=== PATIENT | male | born 2005 | race Hispanic/Latino ===

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

== ENCOUNTER 2023-06-08 17:17 | Emergency (ER) | payer OTHER, SELFPAY ==
[2023-06-08] MEDS ORDERED: MUPIROCIN 2% OINT 22GM TUBE TOP ONE (18:03)
[2023-06-08] MEDS ORDERED: SMZ./TMP. 800/160 MG TABLET ONE (18:03)
[2023-06-08] MEDS ORDERED: DOXYCYCLINE 100 MG CAP PO ONE (18:03)
--- NOTE | 2023-06-08 18:06 | EDPHYS ---
Physician Documentation [facility] Name: Kain Hunt Jr Age: 17 yrs Sex: Male : 2005 Arrival Date: 06/08/2023 Time: 17:17 Bed 12 Private MD: ED Physician José Miguel Torres HPI: 06/08 18:00 This 17 yrs old Male presents to ER via Ambulatory with complaints of Insect magy Bite. 18:00 The patient presents with an abscess of the medial aspect of right thigh and left leg. magy Description: confluent, erythematous. Onset: The symptoms/episode began/occurred 2 day(s) ago. Possible cause(s): insect sting. Associated signs and symptoms: Pertinent positives: swelling. Modifying factors: the symptoms are alleviated by nothing, the symptoms are aggravated by pressure, squeezing the lesion and expressing the contents. Severity of symptoms: At their worst the symptoms were mild, moderate, in the emergency department the symptoms are unchanged. The patient has not experienced similar symptoms in the past. Historical: - Allergies: 17:24 No Known Allergies; hb - Home Meds: 17:24 None [Active]; hb - PMHx: 17:24 None; hb - PSHx: 17:24 None; hb - Immunization history:: Adult Immunizations up to date. - Social history:: Smoking status: Patient denies any tobacco usage or history of. - Family history:: not pertinent. ROS: 18:00 Constitutional: Negative for fever, chills, and weight loss, Eyes: Negative for injury, magy pain, redness, and discharge, ENT: Negative for injury, pain, and discharge, Neck: Negative for injury, pain, and swelling, Cardiovascular: Negative for chest pain, palpitations, and edema, Respiratory: Negative for shortness of breath, cough, wheezing, and pleuritic chest pain, Abdomen/GI: Negative for abdominal pain, nausea, vomiting, diarrhea, and constipation, Back: Negative for injury and pain, : Negative for injury, bleeding, discharge, and swelling, Neuro: Negative for headache, weakness, numbness, tingling, and seizure, Psych: Negative for depression, anxiety, suicide ideation, homicidal ideation, and hallucinations, Allergy/Immunology: Negative for hives, rash, and allergies, Endocrine: Negative for neck swelling, polydipsia, polyuria, polyphagia, and marked weight changes, Hematologic/Lymphatic: Negative for swollen nodes, abnormal bleeding, and unusual bruising. 18:00 MS/extremity: Positive for pain, swelling, tenderness, of the medial aspect of right thigh. 18:00 Skin: Positive for swelling, of the medial aspect of right thigh. Exam: 18:00 Constitutional: This is a well developed, well nourished patient who is awake, alert, magy and in no acute distress. Head/Face: Normocephalic, atraumatic. Eyes: Pupils equal round and reactive to light, extra-ocular motions intact. Lids and lashes normal. Conjunctiva and sclera are non-icteric and not injected. Cornea within normal limits. Periorbital areas with no swelling, redness, or edema. ENT: Nares patent. No nasal discharge, no septal abnormalities noted. Tympanic membranes are normal and external auditory canals are clear. Oropharynx with no redness, swelling, or masses, exudates, or evidence of obstruction, uvula midline. Mucous membranes moist. Neck: Trachea midline, no thyromegaly or masses palpated, and no cervical lymphadenopathy. Supple, full range of motion without nuchal rigidity, or vertebral point tenderness. No Meningismus. Chest/axilla: Normal chest wall appearance and motion. Nontender with no deformity. No lesions are appreciated. Cardiovascular: Regular rate and rhythm with a normal S1 and S2. No gallops, murmurs, or rubs. Normal PMI, no JVD. No pulse deficits. Respiratory: Lungs have equal breath sounds bilaterally, clear to auscultation and percussion. No rales, rhonchi or wheezes noted. No increased work of breathing, no retractions or nasal flaring. Abdomen/GI: Soft, non-tender, with normal bowel sounds. No distension or tympany. No guarding or rebound. No evidence of tenderness throughout. Back: No spinal tenderness. No costovertebral tenderness. Full range of motion. Male : Normal genitalia with no discharge or lesions. Skin: Warm, dry with normal turgor. Normal color with no rashes, no lesions, and no evidence of cellulitis. Neuro: Awake and alert, GCS 15, oriented to person, place, time, and situation. Cranial nerves II-XII grossly intact. Motor strength 5/5 in all extremities. Sensory grossly intact. Cerebellar exam normal. Normal gait. Psych: Awake, alert, with orientation to person, place and time. Behavior, mood, and affect are within normal limits. 18:00 Musculoskeletal/extremity: ROM: no acute changes, intact in all extremities, Circulation is intact in all extremities. Sensation intact. Compartment Syndrome exam of affected extremity: is normal. no numbness, no tingling, no sensation deficit, no palor, no weak pulses, DVT Exam: negative Homans' sign noted on exam, no appreciated bluish discoloration, pain, swelling, tenderness, erythema, that is mild, of the right leg, of the medial aspect of right thigh, increased warmth. Vital Signs: 17:23 BP 129 / 75; Pulse 87; Resp 18; Temp 97.2(TE); Pulse Ox 99% on R/A; Weight 79.38 kg; hb Height 5 ft. 9 in. ; Pain 5/10; 17:23 Body Mass Index 25.84 (79.38 kg, 175.26 cm) hb 17:23 Pain Scale: Adult hb Procedures: 18:00 I \T\ D: Incision and drainage was performed for an abscess of the right Prepped with [facility] Betadine, Anesthetized with nothing. Incised with 23 GUAGE. Drained purulent fluid. Dressing: non-Adherent dressing, the patient tolerated the procedure well. MDM: 17:26 Patient medically screened. magy 18:04 Differential diagnosis: abscess, cellulitis, insect bite. Data reviewed: vital signs, [facility] nurses notes. Consideration of Admission/Observation Escalation of care including admission/observation considered. I considered the following discharge prescriptions or medication management in the emergency department Medications were administered in the Emergency Department. See MAR. Test considered but Not performed: Labs: NO LABS. Care significantly affected by the following chronic conditions: NONE. Administered Medications: 17:58 Drug: Doxycycline PO 200 mg Route: PO; hb 17:58 Drug: Mupirocin Topical Ointment 2 % 1 application Route: Topical; Site: right thigh; hb 17:59 Drug: Trimethoprim-Sulfamethoxazole PO (160 mg-800 mg (DS) 1 tablet Route: PO; hb Disposition Summary: 06/08/23 18:06 Discharge Ordered Location: Home magy Problem: new magy Symptoms: have improved magy Condition: Stable magy Diagnosis - Cutaneous abscess of groin magy Followup: magy - With: Private Physician - When: 2 - 3 days - Reason: Recheck today's complaints, Re-evaluation by your physician Discharge Instructions: - Skin Abscess magy - Incision and Drainage magy - Skin Abscess, [id number] magy - Incision and Drainage, Care After magy - Discharge Summary Sheet hb Forms: - Medication Reconciliation Form magy - Thank You Letter magy - Antibiotic Education magy - Prescription Opioid Use magy - Patient Portal Instructions [facility] - Work release form Prescriptions: - Centany 2 % Topical ointment - apply 1 application by TOPICAL route 3 times per day; 15 gram; Refills: 0, [facility] Product Selection Permitted - Doxycycline Hyclate 100 mg Oral Tablet - take 1 tablet by ORAL route every 12 hours; 20 tablet; Refills: 0, Product [facility] Selection Permitted - Bactrim DS 800-160 mg Oral Tablet - take 1 tablet by ORAL route every 12 hours for 10 days; 20 tablet; Refills: 0, [facility] Product Selection Permitted Signatures: José Miguel Torres MD MD cha Baxter, Heather, RN RN
--- NOTE | 2023-06-08 18:06 | ER ---
Nurse's Notes [facility] Name: Kain Hunt Jr Age: 17 yrs Sex: Male : 2005 Arrival Date: 06/08/2023 Time: 17:17 Bed 12 Private MD: Diagnosis: Cutaneous abscess of groin Presentation: 06/08 17:23 Chief complaint: Abscess right inner thigh x 5 days. Coronavirus screen: At this time, hb the client does not indicate any symptoms associated with coronavirus-19. Ebola Screen: No symptoms or risks identified at this time. Initial Sepsis Screen: Does the patient meet any 2 criteria? No. Patient's initial sepsis screen is negative. Does the patient have a suspected source of infection? No. Patient's initial sepsis screen is negative. Risk Assessment: Do you want to hurt yourself or someone else? Patient reports no desire to harm self or others. Onset of symptoms was June 04, 2023. 17:23 Method Of Arrival: Ambulatory hb 17:23 Acuity: LÁZARO 4 hb Triage Assessment: 17:24 General: Appears in no apparent distress. Behavior is calm, cooperative. Pain: Pain hb currently is 5 out of 10 on a pain scale. Neuro: Level of Consciousness is awake, alert, obeys commands, Oriented to person, place, time, situation. Cardiovascular: Patient's skin is warm and dry. Respiratory: Respiratory effort is even, unlabored, Respiratory pattern is regular, symmetrical. Historical: - Allergies: 17:24 No Known Allergies; hb - Home Meds: 17:24 None [Active]; hb - PMHx: 17:24 None; hb - PSHx: 17:24 None; hb - Immunization history:: Adult Immunizations up to date. - Social history:: Smoking status: Patient denies any tobacco usage or history of. - Family history:: not pertinent. Screenin:25 [facility] ED Fall Risk Assessment (Adult) Score/Fall Risk Level 0 - 2 = Low Risk hb Oriented to surroundings, Maintained a safe environment. Abuse screen: Denies threats or abuse. Denies injuries from another. Nutritional screening: No deficits noted. Tuberculosis screening: No symptoms or risk factors identified. Assessment: 17:25 General: See triage assessment. hb Vital Signs: 17:23 BP 129 / 75; Pulse 87; Resp 18; Temp 97.2(TE); Pulse Ox 99% on R/A; Weight 79.38 kg; hb Height 5 ft. 9 in. ; Pain 5/10; 17:23 Body Mass Index 25.84 (79.38 kg, 175.26 cm) hb 17:23 Pain Scale: Adult hb ED Course: 17:21 Patient arrived in ED. ts1 17:24 Triage completed. hb 17:24 Arm band placed on. hb 17:25 Patient has correct armband on for positive identification. Provided Education on: . hb 17:26 José Miguel Torres MD is Attending Physician. magy 17:38 No provider procedures requiring assistance completed. Patient did not have IV access hb during this emergency room visit. Administered Medications: 17:58 Drug: Doxycycline PO 200 mg Route: PO; hb 17:58 Drug: Mupirocin Topical Ointment 2 % 1 application Route: Topical; Site: right thigh; hb 17:59 Drug: Trimethoprim-Sulfamethoxazole PO (160 mg-800 mg (DS) 1 tablet Route: PO; hb Medication: 17:25 VIS not applicable for this client. hb Outcome: 18:06 Discharge ordered by . magy 18:13 Patient left the ED. hb Signatures: José Miguel Torres MD MD cha Baxter, Heather, RN RN Fany Plunkett PAS PAS ts1
[2023-06-08 18:17] VITALS: BP 129/75; TEMP 97.2; O2SAT 99
== END 2023-06-08 18:13 | disposition home or self-care (01) ==
LOC: ER 17:17
PROC: 0H9HXZZ Drainage of Right Upper Leg Skin, External Approach (ICD-10-PCS; principal; 2023-06-08)
DX: L02.415 Cutaneous abscess of right lower limb (principal)
CPT/HCPCS: 99282